=== PATIENT | male | born 1990 | race Caucasian/White ===

== ENCOUNTER 2017-11-21 23:38 | Emergency (ER) | payer OTHER ==
[~2017-11-21] VITALS: Ht 188 cm; Wt 100.0 kg
[2017-11-22 02:38] VITALS: BP 131/81
== END 2017-11-22 02:54 | disposition home or self-care (01) ==
LOC: ER 23:38
DX: S83.92XA Sprain of unspecified site of left knee, initial encounter (principal); W17.89XA Other fall from one level to another, initial encounter; Y93.39 Activity, other involving climbing, rappelling and jumping off; Y92.89 Other specified places as the place of occurrence of the external cause; Y99.8 Other external cause status
CPT/HCPCS: 29505; 73700